=== PATIENT | male | born 1970 | race Caucasian/White ===

== ENCOUNTER 2024-05-04 07:15 | Emergency (ER) | payer OTHER, SELFPAY ==
--- NOTE | 2024-05-04 07:29 | XRR_ITS ---
PROCEDURE INFORMATION: Exam: XR Left Hand Exam date and time: 05/04/2024 7:32 AM Age: 54 years old Clinical indication: Injury or trauma; Other: Nail in thumb; Puncture; Finger; Left; Additional info: Thumb injury TECHNIQUE: Imaging protocol: Radiologic exam of the left hand. Views: 3 or more views. COMPARISON: No relevant prior studies available. FINDINGS: Bones/joints: Osteoarthritis most significant at the 1st carpometacarpal joint. Soft tissues: Nail within the soft tissues of the thumb which transgresses of the thumb and its entirety of the, there is no evidence for osseous damage on this examination. XR/XR hand LT min 3V* 34580 IMPRESSION: 1. Nail within the soft tissues of the thumb which transgresses predominance entirety. 2. No evidence of osseous abnormality on this examination. 3. Residual findings as above.
[2024-05-04 07:38] VITALS: BP 189/109; PULSE 70; RESP 18; TEMP 36.7; O2SAT 96; BMI 28.7
[2024-05-04 07:44] VITALS: BP 189/109; PULSE 70; RESP 18; TEMP 36.7; O2SAT 96
[2024-05-04] MEDS: lidocaine 1% 10 ML INJ 20 ML INJECTION (08:03)
[2024-05-04] MEDS: tetanus-dipt-pertussis 0.5 mL SDV IM (08:04)
--- NOTE | 2024-05-04 08:14 | ED_ITS ---
HPI - Wound/Laceration General: Chief Complaint: Wound/Laceration Stated Complaint: lt thumb inj (iron nail impalement) Time Seen by Provider: 05/04/24 07:29 History of Present Illness: Healthy 54-year-old man who presents emergency room after he embedded a nail into his left thumb at work with a nail gun. Through and through wound. He says he does not feel like it is in the bone. Neurovascularly intact. Bleeding is controlled. Does not know when his last tetanus was. Related Data Previous Rx's Medication Instructions Recorded cephalexin 500 mg capsule 500 mg PO BID 7 days #14 caps 05/04/24 Allergies Allergy/AdvReac Type Severity Reaction Status Date / Time iodine Allergy ALGY-Hives Verified 05/04/24 07:41 Review of Systems Narrative: Constitutional symptoms: Negative except as documented in HPI. Skin symptoms: Negative except as documented in HPI. Eye symptoms: Negative except as documented in HPI. ENMT symptoms: Negative except as documented in HPI. Respiratory symptoms: Negative except as documented in HPI. Cardiovascular symptoms: Negative except as documented in HPI. Gastrointestinal symptoms: Negative except as documented in HPI. Genitourinary symptoms: Negative except as documented in HPI. Musculoskeletal symptoms: Negative except as documented in HPI. Neurologic symptoms: Negative except as documented in HPI. Psychiatric symptoms: Negative except as documented in HPI. Endocrine symptoms: Negative except as documented in HPI. Physical Exam Narrative: EXAM NARRATIVE: General: Alert, no acute distress. Skin: warm and dry Head: Normocephalic Neck: Trachea midline Eye: Extraocular movements are intact. Ears, nose, mouth and throat: Oral mucosa moist Respiratory: Respirations are non-labored Musculoskeletal: Normal ROM, nail entrance to distal thumb on the palmar side exit proximally. Patient is still able to move his thumb without difficulty. Pain is controlled. Bleeding is controlled. Neurological: Alert and oriented, No focal neurological deficit observed. Psychiatric: Cooperative, appropriate mood & affect. Course Vital Signs: Vital signs: Vital Signs Temperature 98.0 F 05/04/24 07:44 Pulse Rate 70 05/04/24 07:44 Respiratory Rate 18 05/04/24 07:44 Blood Pressure 189/109 05/04/24 07:44 Pulse Oximetry 96 05/04/24 07:44 Oxygen Delivery Me thod Room Air 05/04/24 07:44 MDM - Wound/Laceration Medical Decision Making X-ray of left hand: Shows a nail through the thumb. No fractures. An additional view was obtained that shows the nail did not fermin the bone. Films were interpreted by myself the emergency room provider and pending final radiology review. Procedure: Time 8 AM. Foreign body removal. Removal of nail from the left thumb. Lidocaine without epinephrine was applied along the path of the nail. Good anesthesia was achieved locally. A pair of pliers were needed to slide the nail out of the thumb. Neurovascularly intact after the procedure. Bleeding is controlled. Time of procedure was 7 minutes. Assessment and plan: Foreign body of the thumb. Nail gun injury to the left thumb. ? Life-saving tetanus was administered. Placing the patient on antibiotics for 7-day course. - Discharged home - Discussed plan with patient. Answered any questions. - Evaluation and treatment of this problem were appropriate in the emergency setting. XR interpretation done by ED provider, pending radiology final review Discharge Plan Discharge Patient Disposition: Home Clinical Impression: Foreign body of thumb, Injury of left hand by nail gun Condition: Stable Prescriptions: New cephalexin 500 mg capsule 500 mg PO BID 7 Days Qty: 14 0RF Discharge Orders: Discharge ED (Routine); Ordered 05/04/24 Ordered By: Rina Monahan Discharge Diet: Usual diet Discharge Activity: Increase activity as tolerated Patient Instructions: Puncture Wound (ED) Activity Restrictions/Additional Instructions: Thank you for choosing [facility] for your healthcare needs today. Please realize this is an emergency room and that we are providing you with a medical screening exam and this may not be complete and all inclusive of all the testing and or work up that you may need to determine your ailment or severity of your illness. You have been screened and evaluated and felt safe for discharge. Health conditions do change or evolve sometimes and as such it is important that you follow up with your Primary Doctor to be re checked, 3-5 days is a general good time frame for follow up. You are always welcome to return to the ED for re assessment if your symptoms are worsening or you have new concerns Coding Level of Care Code ED To[facility] [employer] [facility] for Julianne Vera
[2024-05-04 08:27] VITALS: BP 176/107; PULSE 67; O2SAT 98
== END 2024-05-04 08:29 | disposition home or self-care (01) ==
PROVIDERS: Emergency Provider Emergency Medicine
DX: S61.042A Puncture wound with foreign body of left thumb without damage to nail, initial encounter (principal); W29.4XXA Contact with nail gun, initial encounter; Y99.0 Civilian activity done for income or pay; Z23 Encounter for immunization
CPT/HCPCS: 73130; 90471; 90715; 99283

== ENCOUNTER 2024-10-19 06:26 | Day surgery (SDC) | payer OTHER, SELFPAY ==
--- NOTE | 2024-10-19 05:43 | P.HPUD_ITS ---
Surgery/Procedure H&P Update DATE OF PROCEDURE: October 19, 2024 DATE H&P PERFORMED: 10/06/24 H&P UPDATE INFORMATION: I have reviewed H&P completed within last 30 days, I have examined patient prior to procedure, No changes to prior documentation and H&P is in [facility] [place] on date indicated PLANNED PROCEDURE: Operation Date: 10/19/24 07:40 Proposed Procedures p Colonoscopy 30008 G0105 Z12.11(Not Applicable) - Zechariah De Luna MD
[2024-10-19 06:42] VITALS: BP 135/95; PULSE 91; RESP 18; TEMP 36.6; O2SAT 96; BMI 27.2
[2024-10-19] MEDS: sodium chloride 0.9% 1,000 ML 30 ML IV (06:50)
--- NOTE | 2024-10-19 07:09 | ANES.PREANE2 ---
Pre-Anesthetic Assessment Height/Weight: Height 1.78 m Weight 86.183 kg Temp Pulse Resp BP Pulse Ox O2 Del Method 97.8 F 91 18 135/95 96 Room Air 10/19/24 06:42 10/19/24 06:42 10/19/24 06:42 10/19/24 06:42 10/19/24 06:42 10/19/24 06:42 Preop Diagnosis: Screen Operation Date: 10/19/24 07:40 Proposed Procedures p Colonoscopy 54830 G0105 Z12.11(Not Applicable) - Zechariah De Luna MD Familial anesthetic complications: none Was Beta Nadja taken within 24 hours: N/A Was Clonidine taken within 24 hours: N/A Last intake: Intake Last Liquid Date 10/18/24 Last Liquid Time 20:00 Last Solid Date 10/18/24 Last Solid Time 11:00 Social No alcohol and No tobacco Exam alert, oriented x 3, clear to auscultation bilaterally and regular rate & rhythm Airway Submandibular: within normal limits Cervical ROM: within normal limits Mallampati: Class II Comments: Comments: Teeth intact History/ROS No significant history except as noted and No significant complaints Pulmonary None reported CV/HEM Hypertension Hepatic None reported GI None reported Metabolic None reported Musc/skel None reported Neuropsych None reported Anesthetic Plan ASA status: 2 Anesthesia: MAC Risk of > 500 ml blood loss (7ml/kg in children): No Medications/Allergies Home Medications ?Medication ?Instructions ?Recorded ?Confirmed ?Last Taken ?Type lisinopril 5 mg tablet 5 mg PO DAILY 10/06/24 10/17/24 10/18/24 History paroxetine HCl 20 mg tablet 20 mg PO DAILY 10/06/24 10/17/24 10/18/24 History Allergies Allergy/AdvReac Type Severity Reaction Status Date / Time iodine Allergy ALGY-Hives Verified 10/17/24 08:58 Current Medications Generic Name Dose Route Start Last Admin Trade Name Freq PRN Reason Stop Dose Admin Sodium Chloride 1,000 mls @ 30 mls/hr 10/19/24 06:45 10/19/24 06:50 Sodium Chloride 0.9% IV 30 mls/hr .Q24H DEBBIE Administration PFSH Anesthesia Social History Smoking and tobacco/nicotine status: never used tobacco/nicotine Data Anesthesia Cardiac Studies: No Data to Display
[2024-10-19 07:54] VITALS: BP 120/83; PULSE 65; RESP 18; TEMP 36.2; O2SAT 98
[2024-10-19 08:05] VITALS: BP 117/95; PULSE 70; RESP 16; O2SAT 98
[2024-10-19 08:20] VITALS: BP 123/102; PULSE 71; RESP 18; O2SAT 99
--- NOTE | 2024-10-19 08:30 | ANE.PACU2 ---
Inpatient post-anesthesia follow up: Airway intact: Yes Vital signs: Temperature 97.2 F Pulse Rate 71 Respiratory Rate 18 Blood Pressure 123/102 Pulse Oximetry 99 Oxygen Delivery Me thod Room Air Oxygen Flow Rate Fraction of Inspir ed Oxygen Hydration adequate: Yes Nausea and vomiting: No Pain level: 1 Mental status: Baseline
== END 2024-10-19 08:30 | disposition home or self-care (01) ==
PROVIDERS: PCP Family Medicine; Visit Provider Surgery
PROC: 0DJD8ZZ Inspection of Lower Intestinal Tract, Via Natural or Artificial Opening Endoscopic (ICD-10-PCS; CPT 45378; principal; 2024-10-19 07:40)
DX: Z12.11 Encounter for screening for malignant neoplasm of colon (principal); D12.4 Benign neoplasm of descending colon; K57.30 Diverticulosis of large intestine without perforation or abscess without bleeding; I10 Essential (primary) hypertension; Z79.899 Other long term (current) drug therapy
CPT/HCPCS: 45385; 88305; J2704; J7030

== ENCOUNTER → 2024-11-01 08:08 | Outpatient (BNVA) | payer OTHER, SELFPAY | PROVIDERS: PCP Family Medicine; Visit Provider Surgery | DX: Z09 Encounter for follow-up examination after completed treatment for conditions other than malignant neoplasm (principal) | CPT/HCPCS: 99213 ==

== ENCOUNTER 2025-04-06 09:17 | Outpatient (CLI) | payer OTHER, SELFPAY ==
--- NOTE | 2025-04-06 09:24 | US_ITS ---
WS: [id number] RIGHT UPPER QUADRANT ULTRASOUND HISTORY: NAUSEA/VOMITTING COMPARISON: None available. Liver: 13.5 cm in length. Normal size liver and echogenicity. No bile duct dilatation or mass. Portal Vein: Normal hepatopetal flow with monophasic waveform. Gallbladder: Normally distended gallbladder with no stones or wall thickening. CBD: 0.2 cm Pancreas: Normal size and echogenicity. Right kidney: 11.0 cm in length. Normal size and echogenicity. No hydronephrosis or mass. Aorta and IVC: Unremarkable abdominal aorta and IVC. No ascites. US/US abdomen limited 21340 IMPRESSION: Normal right upper quadrant ultrasound.
== END 2025-04-06 09:18 | disposition home or self-care (01) ==
LOC: RAD 09:18
PROVIDERS: PCP Family Medicine; Visit Provider Family Medicine
DX: R11.2 Nausea with vomiting, unspecified (principal)
CPT/HCPCS: 76705

== ENCOUNTER → 2025-06-13 13:25 | Outpatient (BNVA) | payer OTHER, SELFPAY | PROVIDERS: PCP Family Medicine; Referring Provider Family Medicine; Visit Provider Internal Medicine Cardiovascular Disease | DX: R07.9 Chest pain, unspecified (principal); R06.02 Shortness of breath; R94.31 Abnormal electrocardiogram [ECG] [EKG] | CPT/HCPCS: 93005 ==

== ENCOUNTER 2025-06-18 12:33 | Outpatient (CLI) | payer OTHER, SELFPAY ==
[2025-06-18 12:47] VITALS: BMI 25.9
--- NOTE | 2025-06-18 12:47 | ECG_ITS ---
[facility] [employer] Test Date: 2025-06-18 Pat Name: Byron Stewart Department: Room: Gender: Male [employer] Trimmer: : 1970 Requested By: Yadira Lopez Order Number: [id number] Dariana MD: Stevan Naik M.D. Interpretive Statements Lung unchanged pre/post procedure; Intraprocedure shortess of breath; Symptoms resoled by discharge PROCEDURE: At the baseline, the patient's blood pressure was 125/76 with a heart rate of 72. The baseline electrocardiogram showed normal sinus rhythm with right bundle branch block pattern. The patient exercised for 14 minutes and 40 seconds on a standard [facility] protocol. Patient attained a maximum heart rate of 169 beats per minute(101% of the maximum predicted heart rate) with a blood pressure at the peak exercise of 115/76 mm Hg. The EKG at the peak exercise revealed no significant changes. Patient did not have any chest pain or any significant cardiac arrhythmias with the exercise During the recovery phase, there were no new changes. Blood pressure at the end of the recovery phase was 169/63 mm Hg with a heart rate of 93 per minute. CONCLUSION: 1. No significant EKG changes with the treadmill exercise 2. No exercise-induced chest pain or cardiac arrhythmia 3. Good exercise tolerance, attained a maximum of 17.2 METs Electronically Signed On 06-22-2025 20:44:26 MEDICARE NURSE by Stevan Naik M.D. [email or web address]
[2025-06-18 13:30] VITALS: BP 142/66; PULSE 98
== END 2025-06-18 12:34 | disposition home or self-care (01) ==
LOC: CDL 12:34
PROVIDERS: PCP Family Medicine; Visit Provider Internal Medicine Cardiovascular Disease
DX: R94.31 Abnormal electrocardiogram [ECG] [EKG] (principal)
CPT/HCPCS: 93017

== ENCOUNTER 2025-07-17 06:25 | Outpatient (CLI) | payer OTHER, SELFPAY ==
--- NOTE | 2025-07-17 06:34 | USCV_ITS ---
Byron Stewart Age: 55 Gender: M : 1970 Exam Date: 07/17/2025 06:49 Ordering Phys: Yadira Lopez MD ([email or web address]) Technologist: [place] [facility] [place] [facility] [place]: cp sob BP: 125 / 75 HR: 64 Rhythm: Sinus Technical Quality: Adequate MEASUREMENTS (Male / Female) Normal Values 2D ECHO LV Diastolic Diameter PLAX 5.2 cm 4.2 - 5.9 / 3.9 - 5.3 cm IVS Diastolic Thickness 1.4 cm 0.6 - 1.0 / 0.6 - 0.9 cm IVS Systolic Thickness 2.0 cm LVPW Diastolic Thickness 1.3 cm 0.6 - 1.0 / 0.6 - 0.9 cm LVPW Systolic Thickness 1.7 cm LVOT Diameter 2.0 cm LV Ejection Fraction 2D Teich 66.3 % LV Ejection Fraction MOD 4C 62.9 % LV Ejection Fraction MOD 2C 68.2 % LV Ejection Fraction 2C AL 68.6 % LA Diameter 4.0 cm RA Systolic Volume 4C AL 60.6 ml RA Systolic Volume 4C MOD 58.5 ml Aorta at Sinotubular Diameter 3.3 cm IVC Diameter 2.1 cm M-MODE LA Ao Ratio MM 1.4 AV Cusp Separation MM 2.1 cm DOPPLER AV Peak Velocity 166.0 cm/s LVOT Peak Velocity 111.0 cm/s AV Area Cont Eq vti 2.4 cm squared AV Area Cont Eq pk 2.2 cm squared MV Peak Velocity 131.0 cm/s MV Area PHT 5.3 cm squared Mitral E to A Ratio 1.0 TV Peak Velocity 190.5 cm/s TR Peak Velocity 214.0 cm/s TR Peak Gradient 18.3 mmHg TV Peak E Velocity 121.0 cm/s PV Peak Velocity 131.0 cm/s FINDINGS Left Ventricle Normal left ventricular size, systolic function and wall thickness, with no regional wall motion abnormalities. Left ventricular ejection fraction is estimated at 55 %. Normal diastolic function. Right Ventricle Normal right ventricular size and systolic function. Right Atrium Normal right atrial size. Left Atrium Moderately increased left atrial size. IA Septum Normal appearance of the interatrial septum. Mitral Valve Mildly thickened mitral valve. No mitral valve stenosis. Mild mitral valve regurgitation. Aortic Valve Normal aortic valve structure. No aortic valve stenosis or regurgitation. Tricuspid Valve Normal tricuspid valve structure. No tricuspid valve stenosis or regurgitation. Normal pulmonary pressure. Pulmonic Valve Normal pulmonic valve structure. No pulmonic valve stenosis or regurgitation. Pericardium No pericardial effusion. Aorta Normal diameter of the aortic root and ascending thoracic aorta. IVC Normal IVC diameter. CONCLUSIONS Normal left ventricular size, systolic function and wall thickness, with no regional wall motion abnormalities. Left ventricular ejection fraction is estimated at 55 %. Normal diastolic function. Moderately increased left atrial size. There is no pericardial effusion. Right atrial pressure is around 5 mm of mercury. Yadira Lopez MD (Electronically Signed) Final Date: 17 July 2025 18:17 S
== END 2025-07-17 06:26 | disposition home or self-care (01) ==
LOC: RAD 06:26
PROVIDERS: PCP Family Medicine; Visit Provider Internal Medicine Cardiovascular Disease
DX: R06.02 Shortness of breath (principal); E07.9 Disorder of thyroid, unspecified; R94.31 Abnormal electrocardiogram [ECG] [EKG]; I51.7 Cardiomegaly
CPT/HCPCS: 93306